=== PATIENT | female | born 1985 | race African-American/Black ===

== ENCOUNTER 2019-10-16 12:33 | Emergency (ER) | payer OTHER ==
[~2019-10-16] VITALS: Ht 157.5 cm; Wt 108.7 kg
[2019-10-16] MEDS ORDERED: BENA25CA4 PO ×2 (12:42→14:38)
[2019-10-16] MEDS ORDERED: predniSONE 20 MG TAB PO ONE (13:30)
[2019-10-16] MEDS ORDERED: diphenhydrAMINE 25MG CAP PO ONE (13:30)
[2019-10-16] MEDS ORDERED: FAMOTIDINE 20 MG TAB PO ONE (13:30)
[2019-10-16 13:49] LABS: BASO % 0.4 % (0.0-1.0); EOS # 0.3 10^3/uL (0.0-0.5); EOS % 4.1 % (0.0-3.0); HEMATOCRIT 31.4 % (36.0-47.0); HEMOGLOBIN 9.5 g/dl (12.0-15.5); LYMPH # 2.1 10^3/uL (1.5-5.0); LYMPH % 29.7 % (24.0-44.0); MEAN CORPUSCULAR HEMOGLOBIN 22.4 pg (27.0-33.0); MEAN CORPUSCULAR HGB CONC 30.3 g/dl (32.0-36.5); MEAN CORPUSCULAR VOLUME 73.9 fl (80.0-96.0); MONO # 0.5 10^3/uL (0.0-0.8); NEUTROPHILS # 4.2 10^3/uL (1.5-8.5); NEUTROPHILS % 58.7 % (36.0-66.0); PLATELET COUNT, AUTOMATED 416 10^3/uL (150-450); RED BLOOD COUNT 4.25 10^6/uL (4.00-5.40); WHITE BLOOD COUNT 7.2 10^3/uL (4.0-10.0)
[2019-10-16 14:19] LABS: ALBUMIN 3.4 GM/DL (3.2-5.2); ALT/SGPT 20 U/L (12-78); BILIRUBIN,DIRECT < 0.1 MG/DL (0.0-0.2); BILIRUBIN,TOTAL 0.2 MG/DL (0.2-1.0); BLOOD UREA NITROGEN 9 MG/DL (7-18); C REACTIVE PROTEIN QUANTITATIV 2.06 MG/DL (0.00-0.30); CALCIUM LEVEL 9.3 MG/DL (8.5-10.1); CARBON DIOXIDE LEVEL 27 MEQ/L (21-32); CHLORIDE LEVEL 107 MEQ/L (98-107); CREATININE FOR GFR 1.02 MG/DL (0.55-1.30); GLOMERULAR FILTRATION RATE > 60.0 (>60); GLUCOSE, FASTING 97 MG/DL (70-100); POTASSIUM SERUM 4.8 MEQ/L (3.5-5.1); SODIUM LEVEL 139 MEQ/L (136-145); TOTAL PROTEIN 7.7 GM/DL (6.4-8.2)
[2019-10-16] MEDS ORDERED: PRED20TA PO (14:37)
[2019-10-16] MEDS ORDERED: MUPI2OI TOP (14:37)
[2019-10-16] MEDS ORDERED: FAMO20TA PO (14:38)
[2019-10-16 14:54] VITALS: BP 125/84
[2019-10-16 18:30] LABS: ERYTHROCYTE SEDIMENTATION RATE 63 mm/hr (0-20)
== END 2019-10-16 14:55 | disposition home or self-care (01) ==
LOC: M ED 12:33
DX: R22.0 Localized swelling, mass and lump, head (principal); T78.49XA Other allergy, initial encounter; X58.XXXA Exposure to other specified factors, initial encounter; Y92.89 Other specified places as the place of occurrence of the external cause

== ENCOUNTER → 2020-04-10 | Outpatient (CLI) | payer SELFPAY ==
[~2020-04-10] MED LIST: BENA25CA4 PO; FAMO20TA PO; MUPI2OI TOP; PRED20TA PO
== END ==
LOC: M LABSMTC 10:05
PROVIDERS: ATTEND Pediatrics
DX: Z20.828 Contact with and (suspected) exposure to other viral communicable diseases (principal)